=== PATIENT | female | born 1980 | race Caucasian/White ===

== ENCOUNTER 2021-07-09 20:47 | Inpatient (IN) ==
[2021-07-09] MEDS ORDERED: ONDANSETRON 4 MG/2 ML VIAL IV STA (21:10)
[2021-07-09] MEDS ORDERED: MORPHINE 4 MG/1 ML VIAL IV STA (21:15)
[2021-07-09 21:28] LABS: Basophils % 0.3 % (0.0-0.8); Eosinophils # 0.2 10*3/uL (0.0-0.87); Eosinophils % 1.4 % (0.00-10.9); Hematocrit 40.3 VOL% (35.7-47.0); Hemoglobin 13.2 GM/DL (12.0-16.0); Immature Granulocytes % 0.4 %; Immature Granulocytes Absolute 0.05 #; Lymphocytes # 2.9 10*3/uL (1.4-4.0); Lymphocytes % 22.5 % (21.3-54.2); Mean Corpuscular HGB Conc 32.8 GM/DL (32-36); Mean Corpuscular Volume 92.4 FL (87-102); Mean Platelet Volume 9.1 FL (9.6-12.0); Monocytes % 7.3 % (1.7-12.7); Neutrophils % 68.1 % (38.7-73.9); Platelet Count 387 T/CUMM (130-400); Red Blood Count 4.36 MC/CUMM (3.8-5.5); Red Cell Distribution Width 13.6 % (9.3-17.3)
[2021-07-09 22:11] LABS: Albumin 3.6 G/DL (3.4-5.0); Calcium 8.5 MG/DL (8.5-10.1); Osmolality,Calculated 279.3 MOS/KG (273-304); Potassium 3.7 MMOL/L (3.5-5.1); Total Protein 7.1 G/DL (6.4-8.2)
[2021-07-09 22:12] LABS: Bacteria,Urine Occasional /HPF (Few); Bilirubin,Urine Negative (Negative); Blood, Urine Trace mg/dL (Negative); Glucose,Urine (UA) Negative (Negative); Ketones,Urine Negative (Negative); Mucus,Urine Occasional /LPF (Occasional); Nitrite,Urine Negative (Negative); Protein,Urine Negative; Squamous Epithelial Cell,Urine Occasional /HPF (0-10); Urine Appearance Clear (Clear); Urine Color Yellow (Yellow); Urine Urobilinogen 0.2 EU/DL (<2.0)
[2021-07-09] MEDS ORDERED: HYDROmorphone 2 MG/1 ML VIAL IV STA (22:17)
[2021-07-09] MEDS ORDERED: PIPERACILLIN/TAZOBACTAM 3,375 MG in SODIUM CHLORIDE 0.9% 100 ML IV STA (22:49)
[2021-07-09] MEDS ORDERED: ONDANSETRON 4 MG/2 ML VIAL IV PRN (23:17)
[2021-07-09] MEDS ORDERED: PROMETHAZINE 25 MG/1 ML VIAL IM PRN (23:17)
[2021-07-09] MEDS ORDERED: ACETAMINOPHEN 325 MG TABLET PO PRN (23:17)
[2021-07-10] MEDS: DEXTROSE 5% NACL 0.45% 1,000 ML IV SCH (01:03)
[2021-07-10] MEDS: HYDROmorphone 1 MG/1 ML SYRINGE IV PRN ×6 (01:03→21:13)
[2021-07-10 06:35] LABS: Basophils % 0.1 % (0.0-0.8); Eosinophils # 0.1 10*3/uL (0.0-0.87); Eosinophils % 1.3 % (0.00-10.9); Hematocrit 37.5 VOL% (35.7-47.0); Hemoglobin 12.4 GM/DL (12.0-16.0); Immature Granulocytes % 0.3 %; Immature Granulocytes Absolute 0.02 #; Lymphocytes # 1.6 10*3/uL (1.4-4.0); Lymphocytes % 21.8 % (21.3-54.2); Mean Corpuscular HGB Conc 33.1 GM/DL (32-36); Mean Corpuscular Volume 91.5 FL (87-102); Mean Platelet Volume 9.5 FL (9.6-12.0); Monocytes % 8.5 % (1.7-12.7); Platelet Count 334 T/CUMM (130-400); Red Cell Distribution Width 13.6 % (9.3-17.3); White Blood Count 7.4 T/CUMM (4-12)
[2021-07-10 06:54] LABS: Albumin 3.2 G/DL (3.4-5.0); Bilirubin,Total 1.5 MG/DL (0.20-1.00); Calcium 8.1 MG/DL (8.5-10.1); Osmolality,Calculated 279.3 MOS/KG (273-304); Potassium 4.3 MMOL/L (3.5-5.1); Total Protein 6.5 G/DL (6.4-8.2)
[2021-07-10] MEDS: PANTOPRAZOLE 40 MG VIAL IV SCH (09:19)
[2021-07-10] MEDS: PIPERACILLIN/TAZOBACTAM 3,375 MG in SODIUM CHLORIDE 0.9% 100 ML IV SCH ×2 (09:20→15:22)
[2021-07-10] MEDS ORDERED: HYDROmorphone 1 MG/1 ML SYRINGE IV PRN (13:15)
[2021-07-10] MEDS: LACTATED RINGERS 1,000 ML IV SCH (15:22)
[2021-07-10] MEDS: ONDANSETRON 4 MG/2 ML VIAL IV PRN ×2 (15:28→21:12)
[2021-07-11] MEDS: LACTATED RINGERS 1,000 ML IV SCH ×6 (00:12→22:17)
[2021-07-11] MEDS: PIPERACILLIN/TAZOBACTAM 3,375 MG in SODIUM CHLORIDE 0.9% 100 ML IV SCH ×4 (00:33→23:26)
[2021-07-11] MEDS: DEXTROSE 5% NACL 0.45% 1,000 ML IV SCH (01:47)
[2021-07-11 05:52] LABS: Basophils % 0.2 % (0.0-0.8); Eosinophils # 0.1 10*3/uL (0.0-0.87); Eosinophils % 1.6 % (0.00-10.9); Hematocrit 37.7 VOL% (35.7-47.0); Hemoglobin 12.3 GM/DL (12.0-16.0); Immature Granulocytes % 0.2 %; Immature Granulocytes Absolute 0.02 #; Lymphocytes # 1.7 10*3/uL (1.4-4.0); Lymphocytes % 20.6 % (21.3-54.2); Mean Corpuscular HGB Conc 32.6 GM/DL (32-36); Mean Corpuscular Volume 92.4 FL (87-102); Mean Platelet Volume 9.4 FL (9.6-12.0); Monocytes % 6.7 % (1.7-12.7); Neutrophils % 70.7 % (38.7-73.9); Platelet Count 335 T/CUMM (130-400); Red Blood Count 4.08 MC/CUMM (3.8-5.5); Red Cell Distribution Width 13.5 % (9.3-17.3); White Blood Count 8.3 T/CUMM (4-12)
[2021-07-11 06:10] LABS: Bilirubin,Total 1.4 MG/DL (0.20-1.00); Calcium 8.1 MG/DL (8.5-10.1); Osmolality,Calculated 274.4 MOS/KG (273-304); Potassium 3.7 MMOL/L (3.5-5.1); Total Protein 6.2 G/DL (6.4-8.2)
[2021-07-11] MEDS: PANTOPRAZOLE 40 MG VIAL IV SCH (08:58)
[2021-07-11] MEDS: HYDROmorphone 1 MG/1 ML SYRINGE IV PRN ×3 (08:59→20:45)
[2021-07-11] MEDS: ONDANSETRON 4 MG/2 ML VIAL IV PRN ×4 (09:07→20:44)
[2021-07-12] MEDS: LACTATED RINGERS 1,000 ML IV SCH ×4 (05:09→22:55)
[2021-07-12] MEDS ORDERED: ONDANSETRON 4 MG/2 ML VIAL ONE (07:02)
[2021-07-12] MEDS ORDERED: propofoL 200 MG/20 ML VIAL IV ONE (07:02)
[2021-07-12] MEDS ORDERED: LIDOCAINE 2% 5 ML VIAL ONE (07:02)
[2021-07-12] MEDS ORDERED: MIDAZOLAM 2 MG/2 ML VIAL ONE (07:02)
[2021-07-12] MEDS ORDERED: ROCURONIUM 50 MG/5 ML VIAL IV ONE (07:02)
[2021-07-12] MEDS ORDERED: DEXAMETHASONE 4 MG/1 ML VIAL ONE ×2 (07:02→07:58)
[2021-07-12] MEDS ORDERED: fentaNYL 100 MCG/2 ML VIAL ONE (07:03)
[2021-07-12] MEDS ORDERED: SEVOFLURANE 1 UNIT/15 MINUTE INH ONE ×3 (07:10→09:05)
[2021-07-12] MEDS ORDERED: TISSUE ADHESIVE 1 EACH APPLICATOR TOP ONE (07:11)
[2021-07-12] MEDS ORDERED: LIDOCAINE 1%/EPI INJ 20 ML VIAL ONE (07:11)
[2021-07-12] MEDS ORDERED: BUPIVACAINE MPF 0.25% 30 ML VIAL ONE (07:11)
[2021-07-12] MEDS ORDERED: KETOROLAC 30 MG/1 ML VIAL ONE (07:57)
[2021-07-12] MEDS ORDERED: ACETAMINOPHEN INJ 1,000 MG/100 ML VIAL IV ONE (07:57)
[2021-07-12] MEDS ORDERED: NEOSTIGMINE 10 MG/10 ML VIAL ONE (09:04)
[2021-07-12] MEDS ORDERED: GLYCOPYRROLATE 0.4 MG/2 ML VIAL ONE (09:04)
[2021-07-12] MEDS ORDERED: LACTATED RINGERS 1,000 ML IV ONE (09:16)
[2021-07-12] MEDS: PANTOPRAZOLE 40 MG VIAL IV SCH (10:31)
[2021-07-12] MEDS: PIPERACILLIN/TAZOBACTAM 3,375 MG in SODIUM CHLORIDE 0.9% 100 ML IV SCH ×2 (10:32→17:58)
[2021-07-12] MEDS: ONDANSETRON 4 MG/2 ML VIAL IV PRN ×3 (14:03→23:00)
[2021-07-12] MEDS: HYDROmorphone 1 MG/1 ML SYRINGE IV PRN ×3 (14:03→23:02)
[2021-07-13] MEDS: PIPERACILLIN/TAZOBACTAM 3,375 MG in SODIUM CHLORIDE 0.9% 100 ML IV SCH ×3 (02:42→18:33)
[2021-07-13] MEDS: LACTATED RINGERS 1,000 ML IV SCH ×6 (03:32→23:33)
[2021-07-13 06:44] LABS: Albumin 2.6 G/DL (3.4-5.0); Bilirubin,Direct 0.16 MG/DL (0.0-0.20); Bilirubin,Indirect 1.4 MG/DL (0.0-1.0); Bilirubin,Total 1.6 MG/DL (0.20-1.00); Total Protein 5.7 G/DL (6.4-8.2)
[2021-07-13] MEDS: HYDROmorphone 1 MG/1 ML SYRINGE IV PRN ×3 (07:29→22:26)
[2021-07-13] MEDS: ONDANSETRON 4 MG/2 ML VIAL IV PRN ×3 (07:32→22:26)
[2021-07-13] MEDS ORDERED: INDOMETHACIN SUPP 50 MG SUPP RECTAL ONE ×2 (07:51→09:00)
[2021-07-13 09:03] LABS: PT Patient Result 10.9 SECS (10.5-12.0)
[2021-07-13] MEDS ORDERED: fentaNYL 100 MCG/2 ML VIAL ONE (11:49)
[2021-07-13] MEDS ORDERED: MIDAZOLAM 2 MG/2 ML VIAL ONE (11:49)
[2021-07-13] MEDS ORDERED: propofoL 200 MG/20 ML VIAL IV ONE (12:22)
[2021-07-13] MEDS ORDERED: PHENYLEPHRINE 1 MG/10 ML SYRINGE IV ONE (12:22)
[2021-07-13] MEDS ORDERED: LIDOCAINE 2% 5 ML VIAL ONE (12:22)
[2021-07-13] MEDS ORDERED: ONDANSETRON 4 MG/2 ML VIAL ONE (12:22)
[2021-07-13] MEDS ORDERED: SUCCINYLCHOLINE 200 MG/10 ML VIAL ONE (12:22)
[2021-07-13] MEDS ORDERED: SEVOFLURANE 1 UNIT/15 MINUTE INH ONE (12:22)
[2021-07-13] MEDS: PANTOPRAZOLE 40 MG VIAL IV SCH (14:02)
[2021-07-14] MEDS: PIPERACILLIN/TAZOBACTAM 3,375 MG in SODIUM CHLORIDE 0.9% 100 ML IV SCH ×2 (03:15→10:36)
[2021-07-14] MEDS: LACTATED RINGERS 1,000 ML IV SCH ×2 (03:30→11:40)
[2021-07-14 06:08] LABS: Basophils % 0.3 % (0.0-0.8); Eosinophils # 0.1 10*3/uL (0.0-0.87); Eosinophils % 1.8 % (0.00-10.9); Hematocrit 33.8 VOL% (35.7-47.0); Immature Granulocytes % 0.1 %; Immature Granulocytes Absolute 0.01 #; Lymphocytes # 2.6 10*3/uL (1.4-4.0); Lymphocytes % 38.7 % (21.3-54.2); Mean Corpuscular HGB Conc 32.5 GM/DL (32-36); Mean Corpuscular Volume 92.3 FL (87-102); Mean Platelet Volume 9.2 FL (9.6-12.0); Neutrophils % 49.1 % (38.7-73.9); Platelet Count 323 T/CUMM (130-400); Red Blood Count 3.66 MC/CUMM (3.8-5.5); Red Cell Distribution Width 13.5 % (9.3-17.3); White Blood Count 6.7 T/CUMM (4-12)
[2021-07-14 06:28] LABS: Alanine Aminotransferase 105 U/L (13-56); Albumin 2.4 G/DL (3.4-5.0); Alkaline Phosphatase 79 U/L (45-117); Aspartate Amino Transferase 22 U/L (0-37); Bilirubin,Total < 0.39 MG/DL (0.20-1.00); Blood Urea Nitrogen 7 MG/DL (7-18); Calcium 8.3 MG/DL (8.5-10.1); Carbon Dioxide 32 MMOL/L (21-32); Estimated Glom Filtration Rate 107 ML/MIN; Glucose 92 MG/DL (74-106); Osmolality,Calculated 278.3 MOS/KG (273-304); Potassium 3.7 MMOL/L (3.5-5.1); Sodium 141 MMOL/L (136-145); Total Protein 5.5 G/DL (6.4-8.2)
[2021-07-14] MEDS: PANTOPRAZOLE 40 MG VIAL IV SCH (09:20)
[2021-07-14 11:35] VITALS: BP 131/89
== END 2021-07-14 13:40 | disposition home or self-care (01) | DRG 417 ==
LOC: N.ED 20:47 → N.EDINP 23:17 → N.3E 07-10 00:30
PROVIDERS: ADMIT Surgery; ATTEND Surgery
PROC: LAPCHOL (2021-07-12 07:55)
PROC: ERCPWSP (ICD-10-PCS; 2021-07-13 11:35)